=== PATIENT | male | born 1935 | race Caucasian/White ===

== ENCOUNTER 2018-12-11 11:52 | Emergency (ER) | payer MEDICARE, OTHER, SELFPAY ==
[2018-12-11 12:00] VITALS: BP 176/76; PULSE 56; RESP 17; TEMP 36.4; O2SAT 98; BMI 23.3
--- NOTE | 2018-12-11 12:09 | PC.NURSE ---
Patient had a splash of sewage from his holding tank on his boat on the right leg. States the sewage is treated with a few chemicals, including formaldehyde . He states he washed his leg in the shower a few hours later. Noticed scattered red, petechia type bruising/lesions after this exposure and has been treating at home with an antibiotic ointment and bandages. States this has improved the rash. Called Poison Control, spoke with Louis. Was advised at this point, just supportive care for the rash is needed. Provider notified.
--- NOTE | 2018-12-11 12:42 | ED.SKABFB ---
HPI - Skin/Abscess/Foreign Bdy <DAYDAY Madsen - Last Filed: 12/11/18 13:08> General Chief complaint: Skin/Abscess/Foreign Body Stated complaint: Rt leg infection Time Seen by Provider: 12/11/18 11:55 Source: patient Mode of arrival: ambulatory Limitations: no limitations History of Present Illness HPI narrative: The patient is an 83-year-old male former smoker who takes Plavix have a possible infection to his right lower leg. He states that he was splashed with sewage from his holding his headache 6 days ago, and then noticed some bruising and or rash on his lower leg. He states he also has been banging his legs on the stairs to his engine room, so he expects some bruising from that. He denies any fevers nausea vomiting or diarrhea. He states he has been using antibiotic ointment twice a day every day. He states his tetanus was updated 3 years ago. Related Data Allergies Allergy/AdvReac Type Severity Reaction Status Date / Time azithromycin [From Zithromax] Allergy Verified 12/11/18 12:09 Review of Systems <DAYDAY Madsen - Last Filed: 12/11/18 13:08> Review of Systems GENERAL: Denies chills, fatigue, malaise, fever, sweats. HEENT: Denies sinus pain, ear pain, sore throat, difficulty swallowing, dizziness. RESPIRATORY: Denies dyspnea, cough, wheezing, hemoptysis, sputum. CARDIOVASCULAR: Denies chest pain, palpitations, orthopnea, edema, GASTROINTESTINAL: Denies nausea, vomiting, abdominal pain, diarrhea, constipation, melena. : Denies dysuria, frequency, incontinence, hematuria, urinary retention. MUSCULOSKELETAL: denies weakness, joint pain, or bony pain SKIN: See HPI NEUROLOGIC: Denies weakness, headache, numbness, change in speech, confusion, seizures, incoordination. PSYCHIATRIC: No concerning psychosocial issues. 12 point review of systems is negative except for those stated above PFSH <DAYDAY Madsen - Last Filed: 12/11/18 13:08> Social History Smoking Status: Former smoker Social History Smoking Status: Former smoker Exam <DAYDAY Madsen - Last Filed: 12/11/18 13:08> Narrative Exam Narrative: GENERAL: This is a well-nourished, well-developed patient, in no acute distress HEAD: Atraumatic. Normocephalic. No temporal or scalp tenderness. EYES: Pupils equal round and reactive. Extraocular motions intact. No scleral icterus. No injection or drainage. ENT: Nose without bleeding, purulent drainage or septal hematoma. Throat without erythema, tonsillar hypertrophy or exudate. Uvula midline. Airway patent. NECK: Trachea midline. No JVD or lymphadenopathy. Supple, nontender, no meningeal signs. CARDIOVASCULAR: Regular rate and rhythm RESPIRATORY: Clear to auscultation. Breath sounds equal bilaterally. No wheezes, rales, or rhonchi. No cough. No increased respiratory effort. No accessory muscle use. EXTREMITIES: Skin exam is noted. Positive pedal pulses right foot. Steady gait. BACK: Nontender without deformity or crepitance. No flank tenderness. NEURO: AOx3. No gross cranial nerve deficit. SKIN: 0.5 cm abrasion noted on front of right [place]. Scattered areas of ecchymosis ranging from 0.2 cm to 0.5 cm in the 5 cm surrounding the abrasion. No spreading erythema. No noted drainage. Appears well healing. Initial Vital Signs Initial Vital Signs: Vital Signs Temperature 97.5 F L 12/11/18 12:00 Pulse Rate 56 L 12/11/18 12:00 Respiratory Rate 17 12/11/18 12:00 Blood Pressure 176/76 H 12/11/18 12:00 Pulse Oximetry 98 12/11/18 12:00 <Megan Almonte DO - Last Filed: 12/12/18 07:29> Initial Vital Signs Initial Vital Signs: Vital Signs Temperature 97.5 F L 12/11/18 12:00 Pulse Rate 56 L 12/11/18 12:00 Respiratory Rate 17 12/11/18 12:00 Blood Pressure 176/76 H 12/11/18 12:00 Pulse Oximetry 98 12/11/18 12:00 Course <ANNALISE Madsen - Last Filed: 12/11/18 13:08> Vital Signs - 8 hr 12/11/18 12:00 Temperature 97.5 F L Pulse Rate 56 L Respiratory Rate 17 Blood Pressure 176/76 H Pulse Oximetry 98 <Megan Almonte DO - Last Filed: 08/19/19 07:29> Vital Signs - 8 hr 12/11/18 12:00 Temperature 97.5 F L Pulse Rate 56 L Respiratory Rate 17 Blood Pressure 176/76 H Pulse Oximetry 98 MDM - Skin/Abscess/Foreign Bdy <RADHA Madsen-BC - Last Filed: 12/11/18 13:08> [facility] Narrative Medical decision making narrative: The patient is an 83-year-old male who presents with a chief concern of possible right lower leg infection. His exam is overall benign other than an abrasion and some scattered ecchymoses. Given that he was exposed to sewage tank, including formaldehyde chemicals, we did touch base with poison control who instructed symptomatic management at this point time, especially given that he is 6 days out. Discussed at length monitoring for signs and symptoms of worsening infection such as extending redness, fever etc. Encourage PCP follow-up. Discussed come back to the ER for any acute concerns. Patient has no questions or concerns upon discharge. Discharge Plan Departure Patient Disposition: Home Clinical Impression: Abrasion Contusion Qualifiers: Encounter type: initial encounter Contusion area: lower leg Laterality: right Qualified Code(s): S80.11XA - Contusion of right lower leg, initial encounter Discharge Date/Time: 12/11/18 12:50 Interventions: ED Discharge Assessment Last Done: 12/11/18 12:50 Instructions: DI for Eye Contusion, DI for Abrasion Activity Restrictions/Additional Instructions: Please monitor for signs of worsening infection such as spreading redness or fever. I believe your leg looks good at this point time. Please continue to use bacitracin twice a day. Please be evaluated by your primary care provider. Please come back to the emergency department for any acute concerns such as inability keep down fluids, concern of heart attack or stroke etc Referrals: Carmel Sr MD [Primary Care Provider] - <Megan Almonte DO - Last Filed: 12/12/18 07:29> Cosign ED Attending Tiffanyature Attestation: I was immediately available in the department for consultation. Documentation has been reviewed. I agree with assessment and plan.
== END 2018-12-11 12:50 | disposition home or self-care (01) ==
PROVIDERS: Emergency Provider Nurse Practitioner Family; PCP Family Medicine
DX: S80.811A Abrasion, right lower leg, initial encounter (principal); S80.11XA Contusion of right lower leg, initial encounter
CPT/HCPCS: 99282